=== PATIENT | male | born 1990 | race Caucasian/White ===

== ENCOUNTER 2018-02-13 06:27 | Emergency (ER) | payer SELFPAY ==
[~2018-02-13] VITALS: Ht 167.6 cm; Wt 59.0 kg
[2018-02-13] MEDS ORDERED: ZPAK PO (07:00)
[2018-02-13 07:01] VITALS: BP 130/81
[2018-02-13 07:11] LABS: INFLUENZA A NONE DETECTED (NONE DETECT); INFLUENZA B NONE DETECTED (NONE DETECT)
== END 2018-02-13 07:18 | disposition home or self-care (01) | DRG 153 ==
LOC: ED 06:27
PROVIDERS: Emergency Medicine
DX: J06.9 Acute upper respiratory infection, unspecified (principal)